=== PATIENT | female | born 1950 | race Caucasian/White ===

== ENCOUNTER 2024-07-14 16:04 | Inpatient (IN) | payer MEDICARE, BC ==
[~2024-07-14] VITALS: Ht 165.1 cm; Wt 64.9 kg
[2024-07-14] MEDS: IV NS 0.9% 1,000 ML BAG IV ONE (16:30)
[2024-07-14 16:33] LABS: BASOPHILS % (AUTO) 0.6 % (0.0-2.0); EOSINOPHILS # (AUTO) 0.1 K/uL (0.0-0.7); EOSINOPHILS % (AUTO) 1.1 % (0.0-6.0); HEMATOCRIT 31 % (33-45); HEMOGLOBIN 10.9 g/dL (11.5-14.8); LYMPHOCYTES # (AUTO) 0.8 K/uL (0.8-4.8); LYMPHOCYTES % (AUTO) 15.2 % (20.0-44.0); MEAN CORPUSCULAR HEMOGLOBIN 33 PG (26.0-33.0); MEAN CORPUSCULAR HGB CONC 35 g/dl (31.0-36.0); MEAN CORPUSCULAR VOLUME 94 fL (82-100); MONOCYTES # (AUTO) 0.4 K/uL (0.1-1.30); MONOCYTES % (AUTO) 7.6 % (2.0-12.0); NEUTROPHILS # (AUTO) 3.8 K/uL (1.8-8.9); NEUTROPHILS % (AUTO) 75.5 % (43.0-81.0); PLATELET COUNT (AUTO) 255 K/uL (150-450); RED BLOOD CELL COUNT(AUTO) 3.33 MIL/uL (4.0-5.2); RED CELL DISTRIBUTION WIDTH 14.7 % (11.5-15.0)
[2024-07-14 16:41] LABS: CALCIUM, SERUM 9.6 mg/dL (8.5-10.1); CARBON DIOXIDE 27 mmol/L (21-32); CHLORIDE 101 mmol/L (98-107); GLUCOSE 87 mg/dL (74-106); SODIUM SERUM 138 mmol/L (136-145); UREA NITROGEN, BLOOD 28 mg/dL (7-18)
[2024-07-14 16:45] LABS: APPEARANCE,URINE Clear (CLEAR); BILIRUBIN,URINE MODERATE (NEGATIVE); BLOOD, URINE Trace-intact Ery/uL (NEGATIVE); COLOR,URINE YELLOW (YELLOW); KETONES,URINE 80 mg/dL (NEGATIVE); LEUKOCYTE ESTERASE ,URINE Negative (NEGATIVE); NITRITE, URINE Negative (NEGATIVE); PROTEIN,URINE Trace mg/dl (NEGATIVE); UGLUCOSE Negative (NEGATIVE); UROBILINOGEN,URINE 0.2 EU/dL (0.2)
[2024-07-14 16:45] LABS: INR 1.13 (0.91-1.10); PARTIAL THROMBOPLASTIN TIME 28.4 SEC (24.3-34.3); PROTHROMBIN TIME 11.5 SECS (9.2-11.1)
[2024-07-14 16:46] LABS: ALANINE AMINOTRANSFERASE 23 U/L (12-78); ALBUMIN 4.1 g/dL (3.4-5.0); ALCOHOL, BLOOD < 3 mg/dL (0-10); ALKALINE PHOSPHATASE 90 U/L (46-116); ASPARTATE AMINOTRANSFERASE 29 U/L (15-37); BILIRUBIN,DIRECT 0.2 mg/dL (0.0-0.2); BILIRUBIN,TOTAL 0.8 mg/dL (0.2-1.0); TOTAL PROTEIN, SERUM 7.3 g/dL (6.4-8.2)
[2024-07-14 16:47] LABS: ADD URINE CULTURE NO; BACTERIA,URINE Few /HPF (None Seen); SQUAMOUS EPITHELIAL CELL,UR Few /HPF (None Seen); WBC,URINE 0-2 /HPF (0-3)
[2024-07-14 16:47] LABS: ACETAMINOPHEN <10 ug/ml (10-30); SALICYLATE 1.1 mg/dL (2.8-20.0)
[2024-07-14 16:54] LABS: AMPHETAMINE, URINE NEGATIVE (NEGATIVE); BARBITURATE, URINE NEGATIVE (NEGATIVE); BENZODIAZEPINE, URINE NEGATIVE (NEGATIVE); CANNABINOID, URINE NEGATIVE (NEGATIVE); COCCAINE, URINE NEGATIVE (NEGATIVE); OPIATE, URINE NEGATIVE (NEGATIVE); PHENCYCLIDINE SCREEN,URINE NEGATIVE (NEGATIVE)
[2024-07-14 16:58] LABS: SERUM AMMONIA 10 umol/L (11-32)
[2024-07-14] MEDS ORDERED: HYDR453.3 TP (19:15)
[2024-07-14] MEDS ORDERED: FENO145T21 PO (19:15)
[2024-07-14] MEDS ORDERED: [UNRECOGNIZED DRUG - CODE] BU (19:15)
[2024-07-14] MEDS ORDERED: ROPI1TAB6 PO (19:15)
[2024-07-14] MEDS ORDERED: OXYC1TAB8 PO (19:15)
[2024-07-14] MEDS ORDERED: ALBU90AE IH (19:15)
[2024-07-14] MEDS ORDERED: CELE200C PO (19:15)
[2024-07-14] MEDS ORDERED: QUET100T PO (19:15)
[2024-07-14] MEDS ORDERED: ALPR0.5T8 PO (19:15)
[2024-07-14] MEDS ORDERED: POLY17PO4 PO (19:15)
[2024-07-14] MEDS ORDERED: PANT40TA49 PO (19:15)
[2024-07-14] MEDS ORDERED: NYST15PO4 TP (19:15)
[2024-07-14] MEDS ORDERED: TIZA4TAB5 PO (19:15)
[2024-07-14] MEDS ORDERED: ERGO500040 PO (19:15)
[2024-07-14] MEDS ORDERED: NALD0.2T3 PO (19:15)
[2024-07-14] MEDS ORDERED: METH1TAB PO (19:15)
[2024-07-14] MEDS ORDERED: DULO60CA64 PO (19:15)
[2024-07-14] MEDS ORDERED: OMEG-167 PO (19:15)
[2024-07-14] MEDS ORDERED: ONDA4TAB11 PO (19:15)
[2024-07-14] MEDS ORDERED: LEVE750T10 PO (19:15)
[2024-07-14] MEDS ORDERED: UBID300C PO (19:15)
[2024-07-14] MEDS ORDERED: [UNRECOGNIZED DRUG - CODE] TP (19:15)
[2024-07-14] MEDS ORDERED: [UNRECOGNIZED DRUG - CODE] PO (19:15)
[2024-07-14] MEDS ORDERED: SYMBICORT IH (19:15)
[2024-07-14] MEDS ORDERED: DICL75TA5 PO (19:15)
[2024-07-14] MEDS ORDERED: MONT10TA22 PO (19:15)
[2024-07-14] MEDS ORDERED: BEMP180T PO (19:15)
[2024-07-14] MEDS ORDERED: CLOB50SO2 TP (19:15)
[2024-07-14] MEDS ORDERED: PREG150C PO ×2 (19:15)
[2024-07-14] MEDS ORDERED: ARMO250T6 PO (19:15)
[2024-07-14] MEDS ORDERED: TRIA80CR12 TP (19:15)
[2024-07-14] MEDS ORDERED: INSU100C10 SQ (19:15)
[2024-07-14] MEDS ORDERED: CETI-194 PO (19:15)
[2024-07-14] MEDS ORDERED: MAGNESIUM HYDROXIDE 30 ML UDC PO PRN (20:30)
[2024-07-14] MEDS ORDERED: Z GUARD REMEDY 4 OZ OINT TP PRN (20:30)
[2024-07-14] MEDS ORDERED: MAG HYDROX/AL HYDROX/SIMETH 30 ML UDC PO PRN (20:30)
[2024-07-14 21:10] VITALS: BP 157/76; TEMP 98.4; O2SAT 98
[2024-07-14] MEDS: IV D5/0.45 NACL 1,000 ML IV PRN (22:10)
[2024-07-14 22:50] VITALS: BP 157/76; TEMP 98.4; O2SAT 98
[2024-07-15] VITALS (7 sets, daily range): BP systolic 148–170; BP diastolic 59–88; TEMP 98.1–98.6; O2SAT 95–98
[2024-07-15 07:41] LABS: BASOPHILS % (AUTO) 0.4 % (0.0-2.0); EOSINOPHILS # (AUTO) 0.1 K/uL (0.0-0.7); EOSINOPHILS % (AUTO) 1.7 % (0.0-6.0); HEMATOCRIT 29 % (33-45); HEMOGLOBIN 10.1 g/dL (11.5-14.8); LYMPHOCYTES # (AUTO) 0.8 K/uL (0.8-4.8); LYMPHOCYTES % (AUTO) 15.5 % (20.0-44.0); MEAN CORPUSCULAR HEMOGLOBIN 32 PG (26.0-33.0); MEAN CORPUSCULAR HGB CONC 34 g/dl (31.0-36.0); MEAN CORPUSCULAR VOLUME 94 fL (82-100); MONOCYTES # (AUTO) 0.4 K/uL (0.1-1.30); MONOCYTES % (AUTO) 8.1 % (2.0-12.0); NEUTROPHILS # (AUTO) 3.8 K/uL (1.8-8.9); NEUTROPHILS % (AUTO) 74.3 % (43.0-81.0); PLATELET COUNT (AUTO) 217 K/uL (150-450); RED BLOOD CELL COUNT(AUTO) 3.13 MIL/uL (4.0-5.2); RED CELL DISTRIBUTION WIDTH 14.2 % (11.5-15.0); WHITE BLOOD COUNT (AUTO) 5.1 K/uL (4.3-11.0)
[2024-07-15 07:42] LABS: ALANINE AMINOTRANSFERASE 21 U/L (12-78); ALBUMIN 3.5 g/dL (3.4-5.0); ALKALINE PHOSPHATASE 89 U/L (46-116); ASPARTATE AMINOTRANSFERASE 35 U/L (15-37); BILIRUBIN,DIRECT 0.4 mg/dL (0.0-0.2); CALCIUM, SERUM 8.8 mg/dL (8.5-10.1); CHLORIDE 102 mmol/L (98-107); CREATININE 0.7 mg/dL (0.6-1.3); GLUCOSE 150 mg/dL (74-106); PHOSPHORUS 2.9 mg/dL (2.5-4.9); POTASSIUM 3.5 mmol/L (3.5-5.1); SODIUM SERUM 136 mmol/L (136-145); TOTAL PROTEIN, SERUM 6.6 g/dL (6.4-8.2); UREA NITROGEN, BLOOD 20 mg/dL (7-18)
[2024-07-15 07:48] LABS: CARBON DIOXIDE 25 mmol/L (21-32)
[2024-07-15 07:51] LABS: CHOLESTEROL 138 mg/dL (<200); HDL CHOLESTEROL 40 mg/dL (40-60); LDL 85 mg/dL (0-99); TRIGLYCERIDES 91 mg/dL (30-150)
[2024-07-15] MEDS: PANTOPRAZOLE 40 MG TABLET.DR PO SCH (08:28)
[2024-07-15 10:27] LABS: THYROID STIMULATING HORMONE 0.04 uIU/mL (0.358-3.74)
[2024-07-15] MEDS ORDERED: IOHEXOL-350 100 ML VIAL IV ONE (12:05)
[2024-07-15] MEDS ORDERED: IV NS 0.9% 250 ML IV ONE (12:06)
[2024-07-15] MEDS: ACETAMINOPHEN 325 MG TABLET PO PRN (16:06)
[2024-07-15] MEDS ORDERED: BUDE10.2 IH (16:45)
[2024-07-15] MEDS ORDERED: QUETIAPINE FUMARATE 100 MG TABLET PO PRN (17:30)
[2024-07-15] MEDS ORDERED: NYSTATIN TOP POWDER 15 GM BOTTLE TP PRN ×2 (17:30)
[2024-07-15] MEDS ORDERED: ALPRAZOLAM 0.5 MG TABLET PO PRN ×2 (17:30)
[2024-07-15] MEDS: PREGABALIN 100 MG CAPSULE PO SCH (17:37)
[2024-07-15] MEDS: MONTELUKAST SODIUM (10MG) 10 MG TABLET PO SCH (17:37)
[2024-07-15] MEDS: DULOXETINE HCL 30 MG CAPSULE.DR PO SCH (17:38)
[2024-07-15] MEDS: LEVETIRACETAM (250 MG) 250 MG TABLET PO SCH (17:40)
[2024-07-15] MEDS: ropiniROLE 0.5 MG TABLET PO SCH (18:01)
[2024-07-16] VITALS (7 sets, daily range): BP systolic 145–163; BP diastolic 70–82; TEMP 97.9–98.2; O2SAT 95–98
[2024-07-16] MEDS: oxyCODONE/APAP (5/325 MG) 1 UDTAB TABLET PO PRN (02:58)
[2024-07-16 07:07] LABS: BASOPHILS % (AUTO) 0.7 % (0.0-2.0); EOSINOPHILS # (AUTO) 0.1 K/uL (0.0-0.7); EOSINOPHILS % (AUTO) 2.3 % (0.0-6.0); HEMATOCRIT 31 % (33-45); HEMOGLOBIN 10.5 g/dL (11.5-14.8); LYMPHOCYTES # (AUTO) 1.2 K/uL (0.8-4.8); LYMPHOCYTES % (AUTO) 26.1 % (20.0-44.0); MEAN CORPUSCULAR HEMOGLOBIN 32 PG (26.0-33.0); MEAN CORPUSCULAR HGB CONC 34 g/dl (31.0-36.0); MEAN CORPUSCULAR VOLUME 93 fL (82-100); MONOCYTES # (AUTO) 0.5 K/uL (0.1-1.30); MONOCYTES % (AUTO) 11.3 % (2.0-12.0); NEUTROPHILS # (AUTO) 2.8 K/uL (1.8-8.9); NEUTROPHILS % (AUTO) 59.6 % (43.0-81.0); PLATELET COUNT (AUTO) 228 K/uL (150-450); RED CELL DISTRIBUTION WIDTH 14.3 % (11.5-15.0)
[2024-07-16] MEDS: LEVOTHYROXINE SODIUM 137 MCG TABLET PO SCH (07:50)
[2024-07-16 08:46] LABS: CALCIUM, SERUM 9.2 mg/dL (8.5-10.1); CARBON DIOXIDE 28 mmol/L (21-32); CHLORIDE 102 mmol/L (98-107); CREATININE 0.7 mg/dL (0.6-1.3); GLUCOSE 114 mg/dL (74-106); PHOSPHORUS 3.4 mg/dL (2.5-4.9); POTASSIUM 3.2 mmol/L (3.5-5.1); SODIUM SERUM 137 mmol/L (136-145); UREA NITROGEN, BLOOD 15 mg/dL (7-18)
[2024-07-16] MEDS: CELECOXIB 100 MG CAPSULE PO SCH (08:53)
[2024-07-16] MEDS: PREGABALIN 25 MG CAPSULE PO SCH (08:53)
[2024-07-16] MEDS: ENOXAPARIN SODIUM 40 MG/0.4 ML DISP.SYRIN SQ SCH (08:54)
[2024-07-16] MEDS: PANTOPRAZOLE 40 MG TABLET.DR PO SCH (08:54)
[2024-07-16] MEDS: POLYETHYLENE GLYCOL 3350 17 GM POWD.PACK PO SCH (08:54)
[2024-07-16] MEDS: POTASSIUM CHLORIDE 20 MEQ TAB.PRT.SR PO SCH (10:45)
[2024-07-16] MEDS ORDERED: ARMODAFINIL 250 MG PO SCH (11:30)
[2024-07-16] MEDS ORDERED: BUPRENORPHINE BC SCH (17:00)
[2024-07-16] MEDS ORDERED: KEY,NONCONTROL,TO KEEP IN PYXI 1 EA MC ONE ×2 (17:12→21:09)
[2024-07-16] MEDS: BUPRENORPHINE BC SCH (21:17)
[2024-07-17 00:05] VITALS: BP 154/73; TEMP 97.3; O2SAT 95
[2024-07-17] MEDS: ONDANSETRON HCL/PF 4 MG/2 ML VIAL IVP PRN (01:32)
[2024-07-17] MEDS: IV 1/2NS 1000 ML 1,000 ML IV PRN (02:40)
[2024-07-17 04:05] VITALS: BP 129/60; TEMP 97.5; O2SAT 95
[2024-07-17 05:06] VITALS: BP 154/73; TEMP 97.5; O2SAT 95
[2024-07-17 06:38] LABS: BASOPHILS % (AUTO) 0.3 % (0.0-2.0); EOSINOPHILS # (AUTO) 0.1 K/uL (0.0-0.7); EOSINOPHILS % (AUTO) 1.5 % (0.0-6.0); HEMATOCRIT 30 % (33-45); HEMOGLOBIN 10.2 g/dL (11.5-14.8); LYMPHOCYTES % (AUTO) 17.2 % (20.0-44.0); MEAN CORPUSCULAR HEMOGLOBIN 32 PG (26.0-33.0); MEAN CORPUSCULAR HGB CONC 34 g/dl (31.0-36.0); MEAN CORPUSCULAR VOLUME 94 fL (82-100); MONOCYTES # (AUTO) 0.3 K/uL (0.1-1.30); MONOCYTES % (AUTO) 5.5 % (2.0-12.0); NEUTROPHILS # (AUTO) 4.6 K/uL (1.8-8.9); NEUTROPHILS % (AUTO) 75.5 % (43.0-81.0); PLATELET COUNT (AUTO) 181 K/uL (150-450); RED BLOOD CELL COUNT(AUTO) 3.14 MIL/uL (4.0-5.2); RED CELL DISTRIBUTION WIDTH 13.9 % (11.5-15.0); WHITE BLOOD COUNT (AUTO) 6.1 K/uL (4.3-11.0)
[2024-07-17 07:21] LABS: CALCIUM, SERUM 8.8 mg/dL (8.5-10.1); CARBON DIOXIDE 22 mmol/L (21-32); CHLORIDE 100 mmol/L (98-107); CREATININE 0.9 mg/dL (0.6-1.3); MAGNESIUM 2.1 mg/dL (1.8-2.4); PHOSPHORUS 3.6 mg/dL (2.5-4.9); POTASSIUM 4.6 mmol/L (3.5-5.1); SODIUM SERUM 133 mmol/L (136-145); UREA NITROGEN, BLOOD 22 mg/dL (7-18)
[2024-07-17 07:30] LABS: GLUCOSE 477 mg/dL (74-106)
[2024-07-17] MEDS: INSULIN REGULAR, HUMAN 100 UNIT/ML 3 ML VIAL SQ ONE (08:38)
[2024-07-17] MEDS ORDERED: KEY,NONCONTROL,TO KEEP IN PYXI 1 EA MC ONE (08:48)
[2024-07-17] MEDS: MODAFINIL 100 MG TABLET PO SCH (09:03)
[2024-07-17 09:13] VITALS: BP 137/56; TEMP 97.9; O2SAT 93
[2024-07-20 04:11] LABS: FOLIC ACID > 20.0 ng/mL (>3.0)
== END 2024-07-17 11:16 | disposition home health service (06) | DRG 640 ==
LOC: ER 16:06 → TELE 19:14
PROVIDERS: ADMIT Nurse Practitioner Family; ATTEND Internal Medicine
DX: E86.0 Dehydration (principal); G93.41 Metabolic encephalopathy; E10.9 Type 1 diabetes mellitus without complications; E03.9 Hypothyroidism, unspecified; D63.8 Anemia in other chronic diseases classified elsewhere; R56.9 Unspecified convulsions; Z20.822 Contact with and (suspected) exposure to COVID-19; E78.5 Hyperlipidemia, unspecified; K21.9 Gastro-esophageal reflux disease without esophagitis; G47.33 Obstructive sleep apnea (adult) (pediatric); Z88.2 Allergy status to sulfonamides; Z88.8 Allergy status to other drugs, medicaments and biological substances; Z88.1 Allergy status to other antibiotic agents; Z88.0 Allergy status to penicillin; Z91.013 Allergy to seafood; Z79.4 Long term (current) use of insulin; Z79.51 Long term (current) use of inhaled steroids; Z79.890 Hormone replacement therapy; R79.89 Other specified abnormal findings of blood chemistry; Z18.2 Retained plastic fragments; Z88.3 Allergy status to other anti-infective agents; G47.30 Sleep apnea, unspecified; G62.9 Polyneuropathy, unspecified; Z79.899 Other long term (current) drug therapy
CPT/HCPCS: 36415; 70450-TC; 70496-TC; 70498-TC; 71045-TC; 80048-TC; 80061-TC; 80076-TC; 81001; 82140-TC; 82607-TC; 82962-TC; 83735-TC; 83921; 84100-TC; 84425; 84443-TC; 84484-TC; 85025-TC; 85730-TC; 87086-TC; 92526; 92611-TC; 97110-TC; 97116-TC; 97530-TC; A4223; G0378; G0480; J1650; J1815; J2405; J3490; J7030; J7050; Q9967